=== PATIENT | male | born 1990 | race Caucasian/White ===

== ENCOUNTER 2018-02-02 20:08 | Emergency (ER) | payer OTHER, SELFPAY ==
[2018-02-02] MEDS: ACETAMINOPHEN 325 MG TAB PO ×2 (20:50)
== END 2018-02-02 21:12 | disposition home or self-care (01) ==
LOC: M ED 20:08
DX: S29.012A Strain of muscle and tendon of back wall of thorax, initial encounter (principal); X50.0XXA Overexertion from strenuous movement or load, initial encounter; Y92.9 Unspecified place or not applicable; Y93.89 Activity, other specified; Y99.9 Unspecified external cause status; Z72.0 Tobacco use
CPT/HCPCS: 99282